=== PATIENT | female | born 1990 | race Caucasian/White ===

== ENCOUNTER 2023-05-09 20:55 | Emergency (ER) | payer MEDICAID ==
[~2023-05-09] VITALS: Ht 177.8 cm; Wt 119.1 kg
[2023-05-09 21:57] LABS: BASOPHILS # (AUTO) 0.1 X10'3 (0-0.2); BASOPHILS % (AUTO) 1.1 % (0-1); EOSINOPHILS # (AUTO) 0.2 X10'3 (0-0.9); EOSINOPHILS % (AUTO) 1.7 % (0-6); HEMATOCRIT 40.4 % (35.0-45.0); HEMOGLOBIN 13.6 g/dl (12.0-16.0); LYMPHOCYTES # (AUTO) 4.2 X10'3 (1.1-4.8); LYMPHOCYTES % (AUTO) 31.9 % (21-51); MEAN CORPUSCULAR HEMOGLOBIN 26.6 PG (27.0-31.0); MEAN CORPUSCULAR HGB CONC 33.6 g/dL (33.0-36.5); MEAN PLATELET VOLUME 7.7 FL (7.4-10.4); MONOCYTES # (AUTO) 0.7 X10'3 (0-0.9); MONOCYTES % (AUTO) 5.6 % (2-12); NEUTROPHILS # (AUTO) 7.8 X10'3 (1.8-7.7); NEUTROPHILS % (AUTO) 59.7 % (42-75); PLATELET COUNT 417 X10'3 (140-440); RED BLOOD COUNT 5.11 X10'6 (4.20-5.60); RED CELL DISTRIBUTION WIDTH 14.9 % (11.5-14.5); WHITE BLOOD COUNT 13.1 X10'3 (4.5-11.0)
[2023-05-09 22:06] LABS: ALANINE AMINOTRANSFERASE 44 U/L (12-78); ALBUMIN 3.5 G/DL (3.4-5.0); ALBUMIN/GLOBULIN RATIO 0.9 (1.1-1.5); ALKALINE PHOSPHATASE 99 IU/L (46-116); ANION GAP 8 (8-16); ASPARTATE AMINO TRANSFERASE 23 U/L (10-37); BILIRUBIN,TOTAL 0.3 MG/DL (0.1-1.0); BLOOD UREA NITROGEN 12 MG/DL (7-18); BUN/CREATININE RATIO 14.6 (10.0-20.0); CALCIUM 9.1 MG/DL (8.5-10.1); CHLORIDE 104 MMOL/L (99-107); CREATININE 0.82 MG/DL (0.40-0.90); GLUCOSE 101 MG/DL (70-104); POTASSIUM 3.3 MMOL/L (3.5-5.1); SODIUM 139 MMOL/L (135-145); TOTAL CARBON DIOXIDE 27.2 MMOL/L (24-32); TOTAL PROTEIN 7.6 G/DL (6.4-8.2); eCRCL 107 ML/MIN; eGFR 81 ML/MIN
[2023-05-10 03:05] LABS: THYROID STIMULATING HORMONE 0.82 ulU/ml (0.34-4.50)
[2023-05-10 04:16] LABS: BILIRUBIN,URINE NEGATIVE (Neg); CLARITY,URINE SLIGHTLY CLOUDY (Clear); COLOR,URINE YELLOW (Yellow); GLUCOSE, URINE NEGATIVE (Neg); KETONES,URINE NEGATIVE (Neg); LEUKOCYTE ESTERASE ,URINE NEGATIVE (Neg); NITRITES, URINE NEGATIVE (Neg); OCCULT BLOOD,URINE LARGE (Neg); PH,URINE 5.5 (4.8-8.0); PROTEIN,URINE 30 mg/dl (Neg); URINE HCG NEGATIVE (NEG); UROBILINOGEN,URINE 0.2 E.U/dL (0.2-1.0)
[2023-05-10 04:22] LABS: UA COLLECTION TYPE CLN CATCH MIDSTREAM
[2023-05-10 04:23] LABS: MUCUS STRANDS MANY /LPF (Neg); SQUAMOUS EPITHELIAL CELL,UR MANY /LPF (FEW)
[2023-05-10 04:28] LABS: TRANSITIONAL EPI CELLS,URINE FEW /HPF
[2023-05-10 04:30] LABS: URINE AMPHETAMINE SCREEN NEGATIVE (Neg); URINE BARBITUATE SCREEN NEGATIVE (Neg); URINE BENZODIAZEPINES SCREEN NEGATIVE (Neg); URINE CANNABINOID SCREEN NEGATIVE (Neg); URINE COCAINE SCREEN NEGATIVE (Neg); URINE METHADONE SCREEN NEGATIVE (Neg); URINE OPIATE SCREEN NEGATIVE (Neg); URINE PHENCYCLIDINE SCREEN NEGATIVE (Neg)
[2023-05-10 04:32] LABS: WBC,URINE 0-4 /HPF (0-4)
--- NOTE | 2023-05-10 04:32 | NUR ---
PT VERY CONFRONTATIONAL WHEN ASKING TO CHANGE INTO GREEN SCRUBS AND ASKING FOR PERSONAL BELONGINGS. PT NOT INTERACTING/ FORTHCOMING WITH NURSE DURING INTERVIEW. WHEN EXPLAINING RULES AND ER PROTACALL PT STATES " I DONT BELIEVE YOU". THIS NURSE STATED "THATS OK, WOULD YOU LIKE ME TO GET THE CHARGE NURSE TO EXPLAIN ALL OF OUR PROTACALLS TO YOU". CHARGE INFORMED , CHARGE NURSE PROCEDED TO EXPLAIN ER RULES AND PROTACALS OF MENTAL HEALTH HOLD TO PT. PT ANGERLY VOICED HER OPINION ON HER TREATMENT IN THIS ER. PT PERSONAL BELONGINGS SECURED AND LOCKED IN OVERFLOW LOCKER ROOM.
[2023-05-10 04:43] LABS: SPERM FEW /HPF
[2023-05-10 04:44] LABS: BACTERIA,URINE 2+ /HPF (Neg)
[2023-05-10] MEDS ORDERED: ATOR40TA PO (04:51)
[2023-05-10] MEDS ORDERED: METF-900 PO (04:51)
[2023-05-10] MEDS ORDERED: ASPI-1265 PO (04:51)
[2023-05-10] MEDS ORDERED: METO-384 PO (04:51)
--- NOTE | 2023-05-10 07:24 | NUR ---
PATIENT CURRENTLY ASLEEP COMFORTABLY, NOT IN RESPIRATORY DISTRESS. A STAFF AT BEDSIDE INTRODUCED HERSELF THE PATIENT'S "SUPPORT PERSON"
[2023-05-10] MEDS ORDERED: atorvastatin 20mg tablet PO SCH (08:00)
[2023-05-10] MEDS ORDERED: aspirin 81mg tab.chew PO SCH (08:00)
[2023-05-10] MEDS ORDERED: metFORMIN 500mg tablet PO SCH ×2 (08:00→09:08)
[2023-05-10] MEDS ORDERED: metoprolol succinate 25mg (24-HOUR) SR. Tablet PO SCH (08:00)
--- NOTE | 2023-05-10 11:57 | NUR ---
Patient brought over to overflow and placed in bed 20.
--- NOTE | 2023-05-10 13:20 | NUR ---
Patient asked to use the phone to check on her kids. Patient has been appropriate.
--- NOTE | 2023-05-10 14:00 | NUR ---
Break RN: Patient in bed,in view of RN, reading magazine.
--- NOTE | 2023-05-10 15:00 | NUR ---
[facility] @ bedside assessing patient
--- NOTE | 2023-05-10 15:40 | NUR ---
[facility] is willing to accept patient back into services. Masood belongings returned and awaiting discharge paperwork from
[2023-05-10 16:13] VITALS: BP 121/57; PULSE 80; RESP 16; TEMP 97.8; O2SAT 98
== END 2023-05-10 16:17 | disposition home or self-care (01) ==
LOC: ER 20:57 → EEVIPCON 20:57 → ER 05-10 16:17
DX: R45.851 Suicidal ideations (principal); Z20.822 Contact with and (suspected) exposure to COVID-19; F41.9 Anxiety disorder, unspecified
CPT/HCPCS: 36415; 71045; 80053; 80305; 81001; 81025; 82948; 84443; 84484; 85025; 87811; 93005; 99285